=== PATIENT | female | born 1950 | race Caucasian/White ===

== ENCOUNTER 2017-02-19 07:47 | Day surgery (SDC) | payer MEDICARE ==
[~2017-02-19] VITALS: Ht 162.6 cm; Wt 81.7 kg
[~2017-02-19 07:47] MED LIST: IBUPROFEN100 MG PO; PRED FORTE1 ML OPTH
== END 2017-02-19 10:08 | disposition home or self-care (01) ==
LOC: OPS 07:47 → DS 07:47 → OPS 09:15 → DS 10:15
PROC: 08RK3JZ Replacement of Left Lens with Synthetic Substitute, Percutaneous Approach (ICD-10-PCS; principal; 2017-02-19)
DX: H25.13 Age-related nuclear cataract, bilateral (principal); F17.200 Nicotine dependence, unspecified, uncomplicated; Z90.710 Acquired absence of both cervix and uterus; Z88.5 Allergy status to narcotic agent; Z88.8 Allergy status to other drugs, medicaments and biological substances
CPT/HCPCS: 140